=== PATIENT | male | born 1955 | race Caucasian/White ===

== ENCOUNTER → 2020-05-16 07:55 | Outpatient (BNVA) | payer OTHER, SELFPAY | PROVIDERS: Referring Provider Family Medicine; Visit Provider Internal Medicine | DX: E10.40 Type 1 diabetes mellitus with diabetic neuropathy, unspecified (principal); E10.51 Type 1 diabetes mellitus with diabetic peripheral angiopathy without gangrene; E10.649 Type 1 diabetes mellitus with hypoglycemia without coma; E10.65 Type 1 diabetes mellitus with hyperglycemia; E10.8 Type 1 diabetes mellitus with unspecified complications; E78.2 Mixed hyperlipidemia; I10 Essential (primary) hypertension | CPT/HCPCS: 99205 ==

== ENCOUNTER 2020-06-14 11:09 | Outpatient (CLI) | payer OTHER, SELFPAY ==
[2020-06-14 12:24] LABS: Estmated Average Glucose 177; Hemoglobin A1C 7.8 % (4.0-6.0)
[2020-06-15 06:37] LABS: C-Peptide <0.10 ng/mL (0.80-3.85)
== END 2020-06-14 11:10 | disposition home or self-care (01) ==
LOC: LAB 11:12
PROVIDERS: Visit Provider Internal Medicine
DX: E11.40 Type 2 diabetes mellitus with diabetic neuropathy, unspecified (principal); E11.51 Type 2 diabetes mellitus with diabetic peripheral angiopathy without gangrene; E11.649 Type 2 diabetes mellitus with hypoglycemia without coma; E78.2 Mixed hyperlipidemia; I10 Essential (primary) hypertension
CPT/HCPCS: 83036; 84681; 99215

== ENCOUNTER → 2020-09-17 09:54 | Outpatient (BNVA) | payer OTHER, SELFPAY | PROVIDERS: Visit Provider Internal Medicine | DX: E10.40 Type 1 diabetes mellitus with diabetic neuropathy, unspecified (principal); E10.51 Type 1 diabetes mellitus with diabetic peripheral angiopathy without gangrene; E10.649 Type 1 diabetes mellitus with hypoglycemia without coma; E78.2 Mixed hyperlipidemia; I10 Essential (primary) hypertension | CPT/HCPCS: 99215 ==

== ENCOUNTER → 2020-12-13 14:26 | Outpatient (BNVA) | payer OTHER, SELFPAY | PROVIDERS: Visit Provider Internal Medicine | DX: E10.40 Type 1 diabetes mellitus with diabetic neuropathy, unspecified (principal); E10.51 Type 1 diabetes mellitus with diabetic peripheral angiopathy without gangrene; E10.649 Type 1 diabetes mellitus with hypoglycemia without coma; E78.2 Mixed hyperlipidemia; I10 Essential (primary) hypertension | CPT/HCPCS: 99214 ==

== ENCOUNTER 2020-12-13 14:51 | Outpatient (CLI) | payer OTHER, SELFPAY ==
[2020-12-13 16:22] LABS: Estmated Average Glucose 163; Hemoglobin A1C 7.3 % (4.0-6.0)
== END 2020-12-13 14:52 | disposition home or self-care (01) ==
LOC: LAB 15:00
PROVIDERS: Visit Provider Internal Medicine
DX: E10.8 Type 1 diabetes mellitus with unspecified complications (principal)
CPT/HCPCS: 36415; 83036

== ENCOUNTER → 2021-01-09 10:55 | Outpatient (BNVA) | payer OTHER, SELFPAY | PROVIDERS: Visit Provider Family Medicine | DX: I10 Essential (primary) hypertension (principal); E10.8 Type 1 diabetes mellitus with unspecified complications; Z72.0 Tobacco use | CPT/HCPCS: 80053; 80061 ==

== ENCOUNTER → 2021-06-14 10:59 | Outpatient (BNVA) | payer OTHER, SELFPAY | PROVIDERS: Visit Provider Internal Medicine | DX: E10.40 Type 1 diabetes mellitus with diabetic neuropathy, unspecified (principal); E10.649 Type 1 diabetes mellitus with hypoglycemia without coma; E10.51 Type 1 diabetes mellitus with diabetic peripheral angiopathy without gangrene; E10.8 Type 1 diabetes mellitus with unspecified complications; I10 Essential (primary) hypertension; E78.2 Mixed hyperlipidemia; Z79.4 Long term (current) use of insulin | CPT/HCPCS: 99214 ==

== ENCOUNTER → 2021-08-01 10:46 | Outpatient (BNVA) | payer OTHER, SELFPAY | PROVIDERS: Visit Provider Family Medicine | DX: E10.8 Type 1 diabetes mellitus with unspecified complications (principal) | CPT/HCPCS: 80053; 83036 ==

== ENCOUNTER → 2022-03-24 13:58 | Outpatient (BNVA) | payer MEDICARE, SELFPAY | PROVIDERS: Visit Provider Internal Medicine | DX: E10.649 Type 1 diabetes mellitus with hypoglycemia without coma (principal); E10.59 Type 1 diabetes mellitus with other circulatory complications; E10.8 Type 1 diabetes mellitus with unspecified complications; E10.40 Type 1 diabetes mellitus with diabetic neuropathy, unspecified; E78.2 Mixed hyperlipidemia; E16.0 Drug-induced hypoglycemia without coma; T38.3X5A Adverse effect of insulin and oral hypoglycemic [antidiabetic] drugs, initial encounter; F17.210 Nicotine dependence, cigarettes, uncomplicated; Z79.4 Long term (current) use of insulin | CPT/HCPCS: 99214 ==

== ENCOUNTER → 2022-06-23 10:20 | Outpatient (BNVA) | payer MEDICARE, SELFPAY | PROVIDERS: PCP Family Medicine; Visit Provider Internal Medicine | DX: E10.40 Type 1 diabetes mellitus with diabetic neuropathy, unspecified (principal); E10.649 Type 1 diabetes mellitus with hypoglycemia without coma; E10.59 Type 1 diabetes mellitus with other circulatory complications; I73.9 Peripheral vascular disease, unspecified; E78.2 Mixed hyperlipidemia; E16.0 Drug-induced hypoglycemia without coma; T38.3X5A Adverse effect of insulin and oral hypoglycemic [antidiabetic] drugs, initial encounter; Z79.4 Long term (current) use of insulin; F17.210 Nicotine dependence, cigarettes, uncomplicated | CPT/HCPCS: 36415; 80053; 80061; 82044; 83036; 99214 ==

== ENCOUNTER → 2022-09-23 13:14 | Outpatient (BNVA) | payer MEDICARE, SELFPAY | PROVIDERS: PCP Family Medicine; Visit Provider Internal Medicine | DX: E10.649 Type 1 diabetes mellitus with hypoglycemia without coma (principal); E10.59 Type 1 diabetes mellitus with other circulatory complications; E10.40 Type 1 diabetes mellitus with diabetic neuropathy, unspecified; E16.0 Drug-induced hypoglycemia without coma; T38.3X5A Adverse effect of insulin and oral hypoglycemic [antidiabetic] drugs, initial encounter; E78.2 Mixed hyperlipidemia; R53.83 Other fatigue; I73.9 Peripheral vascular disease, unspecified; Z79.4 Long term (current) use of insulin | CPT/HCPCS: 99214 ==

== ENCOUNTER → 2022-12-31 11:29 | Outpatient (BNVA) | payer MEDICARE, SELFPAY | PROVIDERS: PCP Family Medicine; Visit Provider Internal Medicine | DX: E16.0 Drug-induced hypoglycemia without coma (principal); T38.3X5A Adverse effect of insulin and oral hypoglycemic [antidiabetic] drugs, initial encounter; E10.8 Type 1 diabetes mellitus with unspecified complications; E78.2 Mixed hyperlipidemia; R53.83 Other fatigue | CPT/HCPCS: 80053; 80061; 82043; 83036; 84439; 84443 ==

== ENCOUNTER → 2023-01-05 10:54 | Outpatient (BNVA) | payer MEDICARE, SELFPAY | PROVIDERS: PCP Family Medicine; Visit Provider Internal Medicine | DX: E10.649 Type 1 diabetes mellitus with hypoglycemia without coma (principal); E10.40 Type 1 diabetes mellitus with diabetic neuropathy, unspecified; E16.0 Drug-induced hypoglycemia without coma; T38.3X5A Adverse effect of insulin and oral hypoglycemic [antidiabetic] drugs, initial encounter; R53.83 Other fatigue; E78.2 Mixed hyperlipidemia; I73.9 Peripheral vascular disease, unspecified; X58.XXXA Exposure to other specified factors, initial encounter; Z79.4 Long term (current) use of insulin | CPT/HCPCS: 99214 ==

== ENCOUNTER → 2023-04-14 14:44 | Outpatient (BNVA) | payer MEDICARE, SELFPAY | PROVIDERS: PCP Family Medicine; Visit Provider Internal Medicine | DX: R53.83 Other fatigue (principal); E16.0 Drug-induced hypoglycemia without coma; T38.3X5A Adverse effect of insulin and oral hypoglycemic [antidiabetic] drugs, initial encounter; E78.2 Mixed hyperlipidemia; E10.649 Type 1 diabetes mellitus with hypoglycemia without coma; Z79.4 Long term (current) use of insulin | CPT/HCPCS: 99214 ==

== ENCOUNTER → 2023-04-27 14:39 | Outpatient (BNVA) | payer MEDICARE, SELFPAY | PROVIDERS: PCP Family Medicine; Visit Provider Family Medicine | DX: Z12.5 Encounter for screening for malignant neoplasm of prostate (principal); E10.8 Type 1 diabetes mellitus with unspecified complications; E78.5 Hyperlipidemia, unspecified; E16.0 Drug-induced hypoglycemia without coma; T38.3X5A Adverse effect of insulin and oral hypoglycemic [antidiabetic] drugs, initial encounter; R53.83 Other fatigue | CPT/HCPCS: 80053; 80061; 82043; 83036; G0103 ==

== ENCOUNTER → 2023-05-06 12:26 | Outpatient (BNVA) | payer MEDICARE, SELFPAY | PROVIDERS: PCP Family Medicine; Visit Provider Surgery | DX: Z80.0 Family history of malignant neoplasm of digestive organs (principal) | CPT/HCPCS: 99203 ==

== ENCOUNTER 2023-07-01 09:19 | Day surgery (SDC) | payer MEDICARE, SELFPAY ==
[2023-07-01] VITALS (11 sets, daily range): BP systolic 116–149; BP diastolic 64–80; PULSE 49–65; RESP 14–18; TEMP 36.1–36.6; O2SAT 95–100; BMI 26.8
[2023-07-01] MEDS: sodium chloride 0.9% 1,000 ML 30 ML IV (09:43)
[2023-07-01 09:46] LABS: Glucose Point of Care 136 mg/dL (70-110)
--- NOTE | 2023-07-01 09:47 | PM.HP ---
Providers/Chief Complaint Primary Care Provider: Shellie Betancourt MD Chief Complaint: Z80.0 History of Present Illness Neil Hurtado is a 67 year old male Review of Systems General: Reports: 10 or more systems reviewed and unremarkable except in HPI and below Medications/Allergies Home Medications Medication Instructions Recorded Confirmed Last Taken Type insulin aspart U-100 100 unit/mL See Rx Instructions SUBCUT TID #15 07/02/22 07/01/23 06/30/23 Rx (3 mL) subcutaneous pen (Novolog mL FlexPen U-100 Insulin aspart) flash glucose scanning reader #1 ea 01/05/23 06/29/23 06/29/23 Rx (FreeStyle Jeffrey 2 [place]) flash glucose sensor (FreeStyle #6 ea 01/05/23 06/29/23 06/29/23 Rx Jeffrey 2 Sensor kit) amlodipine 5 mg tablet 5 mg PO DAILY 06/29/23 07/01/23 06/29/23 History insulin glargine U-300 conc 300 65 unit SUBCUT DAILY 06/29/23 07/01/23 06/30/23 History unit/mL (3 mL) subcutaneous pen (Toujeo Max U-300 SoloStar) sildenafil (pulm.hypertension) 20 20 mg PO DAILY 06/29/23 07/01/23 06/29/23 History mg tablet atorvastatin 40 mg tablet See Rx Instructions .Route 06/30/23 07/01/23 06/29/23 Rx .COMPLEX #90 tabs losartan 100 mg tablet 100 mg PO DAILY #90 tabs 06/30/23 07/01/23 06/29/23 Rx Allergies Allergy/AdvReac Type Severity Reaction Status Date / Time Penicillins Allergy Unknown UNKNOWN Verified 07/01/23 09:27 PFSH Acute PFSH: Medical History History of myocardial infarction Surgical History H/O hand surgery H/O heart surgery Hx of colonoscopy with polypectomy last done 5 yrs ago hx of polyps Family History Other Cancer Diabetes Social History Smoking and tobacco/nicotine status: current every day tobacco/nicotine user cigarettes Packs smoked per day: 0.5 Quit status (tobacco/nicotine): considering quitting Alcohol intake: current Alcohol intake frequency: holidays/special occasions only Substance/Drug Use: never Current gender identity: Male Vitals/I&O/Wt Last Vital Signs Temp 97.8 F 07/01/23 09:30 Pulse 65 07/01/23 09:30 Resp 18 07/01/23 09:30 BP 143/79 07/01/23 09:30 Pulse Ox 96 07/01/23 09:30 O2 Del Method Room Air 07/01/23 09:30 Weight last 48 hrs Weight 198 lb Physical Exam Narrative: General : Patient is well developed , no acute distress, oriented x3 Head : Normal cephalic, a-traumatic. Ears : Pinnae and external canal are normal. Hearing is normal. Eyes : PERRLA, Sclera and injection are normal. No conjunctival discharge. Nose : Mucous membranes are without erythema. Throat : buccal mucosa is normal, gums are without significant recession or hypertrophy. Lungs : Equal chest rise bilaterally, no use of accessory muscles, trachea is midline. Cor : Rate and rhythm are normal. Abdomen : Soft, ND, NT, no g/r/m Extremities : No edema, no cyanosis or clubbing, dorsalis pedis pulses are present bilaterally, non-tender to palpation of calves. Upper extremities are normal bilaterally. Back : non-tender to palpation, no CVA tenderness. Neuro : CN II - XII intact, Upper and lower extremities have equal and full strength A&P Assessment and plan (1) Family history of colon cancer: Plan Colonoscopy Attestations Medical Necessity Statement*: Home Coding Level of Care Code Acute Code for Chg Fwd Diagnoses Family history of colon cancer Z80.0
--- NOTE | 2023-07-01 10:25 | P.ANESASSM_ITS ---
Pre-Anesthetic Assessment Height/Weight: Height 1.83 m Weight 89.811 kg Temp Pulse Resp BP Pulse Ox O2 Del Method 97.8 F 65 18 143/79 96 Room Air 07/01/23 09:30 07/01/23 09:30 07/01/23 09:30 07/01/23 09:30 07/01/23 09:30 07/01/23 09:30 Preop Diagnosis: screening Operation Date: 07/01/23 10:30 Proposed Procedures p Colonoscopy 41175,Z80.0(Not Applicable) - Vignesh Paul DO Familial anesthetic complications: None Was Beta Sam taken within 24 hours: N/A Was Clonidine taken within 24 hours: N/A Last intake: Intake Last Liquid Date 07/01/23 Last Liquid Time 22:30 Last Solid Date 06/29/23 Social Tobacco (1ppd x5 years ) and No alcohol Exam alert, oriented x 3 and regular rate & rhythm Airway Submandibular: within normal limits Mallampati: Class I Dentition: false History/ROS No significant history except as noted Pulmonary None reported CV/HEM Coronary Artery Disease, Hypertension and Peripheral Vascular Disease None reported Hepatic None reported GI None reported Metabolic Diabetes Mellitus [facility] Lower Back Pain Neuropsych None reported Anesthetic Plan ASA status: 3 Anesthesia: Anesthesia Evaluation and MAC Risk of > 500 ml blood loss (7ml/kg in children): No Medications/Allergies Home Medications Medication Instructions Recorded Confirmed Last Taken Type insulin aspart U-100 100 unit/mL See Rx Instructions SUBCUT TID #15 07/02/22 07/01/23 06/30/23 Rx (3 mL) subcutaneous pen (Novolog mL FlexPen U-100 Insulin aspart) flash glucose scanning reader #1 ea 01/05/23 06/29/23 06/29/23 Rx (FreeStyle Jeffrey 2 [place]) flash glucose sensor (FreeStyle #6 ea 01/05/23 06/29/23 06/29/23 Rx Jeffrey 2 Sensor kit) amlodipine 5 mg tablet 5 mg PO DAILY 06/29/23 07/01/23 06/29/23 History insulin glargine U-300 conc 300 65 unit SUBCUT DAILY 06/29/23 07/01/23 06/30/23 History unit/mL (3 mL) subcutaneous pen (Toujeo Max U-300 SoloStar) sildenafil (pulm.hypertension) 20 20 mg PO DAILY 06/29/23 07/01/23 06/29/23 History mg tablet atorvastatin 40 mg tablet See Rx Instructions .Route 06/30/23 07/01/23 06/29/23 Rx .COMPLEX #90 tabs losartan 100 mg tablet 100 mg PO DAILY #90 tabs 06/30/23 07/01/23 06/29/23 Rx Allergies Allergy/AdvReac Type Severity Reaction Status Date / Time Penicillins Allergy Unknown UNKNOWN Verified 07/01/23 09:27 Current Medications Generic Name Dose Route Start Last Admin Trade Name Freq PRN Reason Stop Dose Admin Sodium Chloride 1,000 mls @ 30 mls/hr 07/01/23 09:30 07/01/23 09:43 Sodium Chloride 0.9% IV 07/02/23 09:29 30 mls/hr .Q24H LEILA Administration PFSH Anesthesia Medical History History of myocardial infarction Surgical History H/O hand surgery H/O heart surgery Hx of colonoscopy with polypectomy last done 5 yrs ago hx of polyps Family History Other Cancer Diabetes Social History Smoking and tobacco/nicotine status: current every day tobacco/nicotine user cigarettes Packs smoked per day: 0.5 Quit status (tobacco/nicotine): considering quitting Alcohol intake: current Alcohol intake frequency: holidays/special occasions only Substance/Drug Use: never Current gender identity: Male Data Anesthesia Cardiac Studies: No Data to Display
[2023-07-01 11:53] LABS: Glucose Point of Care 149 mg/dL (70-110)
--- NOTE | 2023-07-01 14:02 | PC.NURSE ---
CONTINUOUS PULSE OXIMETER MONITORING FOR A TOTAL OF 2 HOURS PER ANESTHESIA INSTRUCTIONS. PT REPORTED NO SHORTNESS OF BREATH, DENIES CHEST PAIN. OXYGEN SATURATION >95% ON ROOM AIR WHILE PT IN RECOVERY. DISCHARGE INSTRUCTIONS AND MEDICATIONS REVIEWED WITH PT, VERBALIZED UNDERSTANDING. ALL QUESTIONS ANSWERED.
--- NOTE | 2023-07-02 12:29 | PM.MISC ---
Miscellaneous Note Purpose of Documentation: Patient check-up post procedure Note: Notified patient not feeling well and vomiting today after colonoscopy yesterday. Called patient. He states he's felt nauseated since last night. Vomited once this morning. Denies any shortness of breath, dyspnea, or cough. States he feels some soreness around his ribs if he coughs. He doesn't have a thermometer, but states he feels a bit febrile. Instructed patient to go to ER and inform them he is having nausea/vomiting/possible fever after colonoscopy and possible aspiration event yesterday. Patient projectile vomited during his colonoscopy and may developing aspiration pneumonia or may be experiencing complication from colonoscopy. Patient states he will proceed to ER at 2 pm when his ride arrives.
== END 2023-07-01 13:48 | disposition home or self-care (01) ==
PROVIDERS: PCP Family Medicine; Visit Provider Surgery
PROC: 0DJD8ZZ Inspection of Lower Intestinal Tract, Via Natural or Artificial Opening Endoscopic (ICD-10-PCS; CPT 45378; principal; 2023-07-01 10:30)
DX: Z86.010 Personal history of colon polyps (principal); Z80.0 Family history of malignant neoplasm of digestive organs; K64.8 Other hemorrhoids; K57.30 Diverticulosis of large intestine without perforation or abscess without bleeding; K62.1 Rectal polyp; F17.210 Nicotine dependence, cigarettes, uncomplicated; I25.10 Atherosclerotic heart disease of native coronary artery without angina pectoris; I10 Essential (primary) hypertension; E11.9 Type 2 diabetes mellitus without complications; Z79.4 Long term (current) use of insulin; I25.2 Old myocardial infarction
CPT/HCPCS: 36416; 45385; 82962; 88305; J0330; J2250; J2704; J7030

== ENCOUNTER 2023-07-02 16:38 | Emergency (ER) | payer MEDICARE, SELFPAY ==
[2023-07-02 16:44] VITALS: BP 117/69; PULSE 76; RESP 15; TEMP 37.4; O2SAT 96; BMI 26.8
--- NOTE | 2023-07-02 17:11 | ED_ITS ---
HPI - General Adult General: Chief complaint: General Medical Stated complaint: fever, fluid in lungs, had colonoscopy Time Seen by Provider: 07/02/23 17:11 History of Present Illness: 67-year-old male patient comes in today for cough after procedure. Patient had a colonoscopy yesterday and after the procedure patient had a significant amount of emesis. It was concerned that patient may have had an aspiration of emesis. Today patient did report some cough and a low-grade fever less than 100.4. Patient reports feeling well. Patient appears nontoxic. Patient reports no significant pain. Associated symptoms: Deny chest pain, nausea or vomiting Review of Systems General: Reports: 10 or more systems reviewed and unremarkable except in HPI and below Const: Reports: chills; Denies: fever(s) Card: Denies: chest pain Resp: Reports: non-productive cough GI: Denies: abdominal pain, nausea, vomiting, diarrhea or constipation : Denies: difficulty urinating Musc: Denies: neck pain or back pain PFSH ED PFSH: Medical History History of myocardial infarction Surgical History H/O hand surgery H/O heart surgery Hx of colonoscopy with polypectomy last done 5 yrs ago hx of polyps Family History Other Cancer Diabetes Social History Smoking and tobacco/nicotine status: current every day tobacco/nicotine user cigarettes Packs smoked per day: 0.5 Quit status (tobacco/nicotine): considering quitting Alcohol intake: current Alcohol intake frequency: holidays/special occasions only Substance/Drug Use: never Current gender identity: Male Physical Exam Const: COMMON NORMALS: alert HENMT: HEAD & SCALP: normal to inspection Neck/C-Spine: COMMON NORMALS: full ROM Resp: COMMON NORMALS: normal respiratory effort and clear to auscultation bilaterally AUSCULTATION: clear to auscultation bilaterally Cardio: COMMON NORMALS: regular rate and regular rhythm RATE: regular rate RHYTHM: regular rhythm GI: COMMON NORMALS: Soft to palpation and non-tender AUSCULTATION: Yes normoactive bowel sounds PALPATION: Yes Soft to palpation : COMMON NORMALS: Yes no CVA tenderness BLADDER/KIDNEY EXAM: Yes no CVA tenderness Back/Pelvis: COMMON NORMALS: no CVA tenderness Extremity: COMMON NORMALS: normal to inspection Neuro: SENSORIUM/ORIENTATION: Yes alert Skin: COMMON NORMALS: turgor normal GENERAL SKIN EXAM: turgor normal Course Vital Signs: Vital signs: Vital Signs Temperature 99.3 F 07/02/23 16:44 Pulse Rate 61 07/02/23 18:45 Respiratory Rate 18 07/02/23 18:45 Blood Pressure 113/49 07/02/23 18:45 Pulse Oximetry 95 07/02/23 18:45 Oxygen Delivery Me thod Room Air 07/02/23 16:44 MDM - General Adult Medical Decision Making Patient was referred to the ER for evaluation due to a cough and reported fever at home after procedure yesterday. Patient had talked to the nurse when she called to check on him, patient had thrown up after the procedure (colonoscopy). On exam patient appears nontoxic. Vital signs are normal. Patient appears in no pain. Abdomen was soft and nontender. Differential diagnosis includes aspiration pneumonia, postprocedure bronchitis, upper respiratory infection. CBC and CMP were unremarkable. Blood cultures were sent. Lactic was normal. Chest x-ray showed no acute abnormalities. I had Dr. Tovar, intending ph ysician, review chest x-ray with me. Recommend patient home and rest and monitor for fever. Patient was given 8 mg of dexamethasone x1 for cough and throat irritation. Patient reported understanding of care plan and need for follow-up or return to the ER. Lab Data 07/02/23 17:24 07/02/23 17:24 Laboratory Results WBC 7.68 10^3/uL (3.29-11.43) 07/02/23 17:24 RBC 4.63 10^6/uL (3.85-5.65) 07/02/23 17:24 Hgb 14.10 g/dL (11.27-16.99) 07/02/23 17:24 Hct 41.9 % (37-53) 07/02/23 17:24 MCV 90.5 fl (82-101) 07/02/23 17: MCH 30.5 pg (27-33) 07/02/23 17: MCHC 33.7 g/dL (30-55) 07/02/23 17: RDW 13.3 % (12.1-15.1) 07/02/23 17: Plt Count 143 10^3/cmm (157-399) L 07/02/23 17: MPV 9.7 fL (7.4-10.4) 07/02/23 17: Neut % (Auto) 87.2 % 07/02/23 17: Lymph % (Auto) 7.7 % 07/02/23: [place] % (Auto) 3.9 % 07/02/23 17: Eos % (Auto) 0.5 % 07/02/23 17: Baso % (Auto) 0.4 % 07/02/23: Neut # (Auto) 6.70 10^3/uL (1.8-7.7) 07/02/23: Lymph # (Auto) 0.6 10^3/uL (0.8-4.8) L 07/02/23: [place] # (Auto) 0.3 10^3/uL (0.2-0.9) 07/02/23 17: Eos # (Auto) 0.0 10^3/uL (0.0-0.8) 07/02/23: Baso # (Auto) 0.0 10^3/uL (0.0-0.1) 07/02/23 17: Nucleated RBC % (auto) 0 % 07/02/23: Nucleated RBCs # 0.0 /100WBC 07/02/23 17:24 Sodium 133 mmol/L (136-145) L 07/02/23 17:24 Potassium 4.1 mmol/L (3.5-5.1) 07/02/23 17:24 Chloride 101 mmol/L (98-107) 07/02/23 17:24 Carbon Dioxide 26 mmol/L (22-29) 07/02/23 17:24 Anion Gap 10.1 (5-19) 07/02/23 17:24 BUN 19 mg/dL (8-23) 07/02/23 17:24 Creatinine 0.9 mg/dL (0.7-1.2) 07/02/23 17:24 GFR Calculation 84.4 mL/min (90-130) L 07/02/23 17:24 Glucose 223 mg/dL (65-115) H 07/02/23 17:24 Calculated Osmolality 285 mOsm/kg (285-295) 07/02/23 17:24 Lactic Acid 0.8 mmol/L (0.5-2.2) 07/02/23 17:24 Calcium 8.1 mg/dL (8.5-10.5) L 07/02/23 17:24 Total Bilirubin 0.8 mg/dL (0.15-1.2) 07/02/23 17:24 AST 17 U/L (0-40) 07/02/23 17:24 ALT 19 U/L (0-41) 07/02/23 17:24 Alkaline Phosphatase 84 U/L (40-130) 07/02/23 17:24 Total Protein 5.8 g/dL (6.6-8.7) L 07/02/23 17:24 Albumin 3.4 g/dL (3.5-5.2) L 07/02/23 17:24 Globulin 2.4 g/dL (1.3-4.6) 07/02/23 17:24 XR interpretation done by ED provider, pending radiology final review Discharge Plan Discharge Patient Disposition: Home Clinical Impression: Bronchitis after surgery Condition: Stable Prescriptions: No Action (DME) FreeStyle Jeffrey 2 [place] Misc See Rx Instructions .Route Qty: 1 0RF Rx Instructions: As directed (DME) FreeStyle Jeffrey 2 Sensor Kit See Rx Instructions .Route Qty: 6 0RF Rx Instructions: Change every 14 days insulin aspart U-100 [Novolog FlexPen U-100 Insulin] 100 unit/mL (3 mL) insulin pen See Rx Instructions SUBCUT TID Qty: 15 3RF Rx Instructions: Inject 10 units before breakfast, 8 units before lunch and dinner, plus sliding scale. Max dose of 44 units per day. losartan 100 mg tablet 100 mg PO DAILY Qty: 90 0RF atorvastatin 40 mg tablet See Rx Instructions .ROUTE .COMPLEX Qty: 90 0RF Dose Instruction: TAKE 1 TABLET BY MOUTH DAILY Rx Instructions: TAKE 1 TABLET BY MOUTH DAILY amlodipine 5 mg tablet 5 mg PO DAILY Rx Instructions: TAKE 1 TABLET BY MOUTH DAILY sildenafil (pulm.hypertension) 20 mg tablet 20 mg PO DAILY Toujeo Max U-300 SoloStar 300 unit/mL (3 mL) insulin pen 65 unit SUBCUT DAILY Rx Instructions: INJECT 65 UNITS UNDER THE SKIN DAILY in the AM Procto-Med HC 2.5 % cream with perineal applicator 1 applic PA QID PRN (Reason: hemorrhoids) 10 Days Qty: 30 0RF Rx Instructions: May use for up to 3 weeks if no resolution after 10 days Discharge Orders: Discharge ED (Routine); Ordered 07/02/23 Ordered By: Joss Banks Referrals: Shellie Betancourt MD [Primary Care Provider] - Discharge Diet: Usual diet Discharge Activity: Increase activity as tolerated Patient Instructions: Acute Bronchitis (ED) Activity Restrictions/Additional Instructions: Home and rest. Drink plenty water and fluids. Use acetaminophen for discomfort. Follow-up with primary care as needed. Return to ED for worsening symptoms such as severe chest pain, shortness of breath, or fever greater than 100.4. Coding Level of Care Code ED Digital Marketing Coordinator for [employer]
--- NOTE | 2023-07-02 17:12 | XRR_ITS ---
PROCEDURE INFORMATION: Exam: XR Chest Exam date and time: 07/02/2023 5:14 PM Age: 67 years old Clinical indication: Device placement; Other: Post-rpocedure; Additional info: Cough, fever post procedure TECHNIQUE: Imaging protocol: Radiologic exam of the chest. Views: 1 view. COMPARISON: No relevant prior studies available. FINDINGS: Lungs: Unremarkable. No consolidation. Pleural spaces: Unremarkable. No pleural effusion. No pneumothorax. Heart/Mediastinum: Unremarkable. No cardiomegaly. Bones/joints: Unremarkable. XR/XR chest 1V portable [id number] IMPRESSION: No acute findings. Is
[2023-07-02 17:40] LABS: Basophils % 0.4 %; Eosinophils % 0.5 %; Hematocrit 41.9 % (37-53); Lymphocytes # 0.6 10^3/uL (0.8-4.8); Lymphocytes % 7.7 %; Mean Corpuscular HGB Conc 33.7 g/dL (30-55); Mean Corpuscular Hemoglobin 30.5 pg (27-33); Mean Corpuscular Volume 90.5 fl (82-101); Mean Platelet Volume 9.7 fL (7.4-10.4); Monocytes # 0.3 10^3/uL (0.2-0.9); Monocytes % 3.9 %; Neutrophils % 87.2 %; Nucleated Red Blood Cells % 0 %; Platelet Count 143 10^3/cmm (157-399); Red Blood Count 4.63 10^6/uL (3.85-5.65); Red Cell Distribution Width 13.3 % (12.1-15.1); White Blood Count 7.68 10^3/uL (3.29-11.43)
[2023-07-02 17:57] LABS: Alanine Aminotransferase 19 U/L (0-41); Albumin Level 3.4 g/dL (3.5-5.2); Alkaline Phosphatase 84 U/L (40-130); Anion Gap 10.1 (5-19); Aspartate Amino Transferase 17 U/L (0-40); Blood Urea Nitrogen 19 mg/dL (8-23); Calcium 8.1 mg/dL (8.5-10.5); Carbon Dioxide 26 mmol/L (22-29); Chloride 101 mmol/L (98-107); Globulin 2.4 g/dL (1.3-4.6); Glomerular Filtration Rate 84.4 mL/min (90-130); Glucose 223 mg/dL (65-115); Osmolality Calculated 285 mOsm/kg (285-295); Potassium 4.1 mmol/L (3.5-5.1); Sodium 133 mmol/L (136-145); Total Bilirubin 0.8 mg/dL (0.15-1.2); Total Protein 5.8 g/dL (6.6-8.7)
[2023-07-02 18:00] LABS: Lactic Sepsis W/Reflex 0.8 mmol/L (0.5-2.2)
[2023-07-02 18:45] VITALS: BP 113/49; PULSE 61; RESP 18; O2SAT 95
[2023-07-02] MEDS: dexamethasone 10 mg/mL INJ 8 MG IVP (19:30)
[2023-07-02 19:42] VITALS: BP 126/61; PULSE 60; O2SAT 98
== END 2023-07-02 19:44 | disposition home or self-care (01) ==
PROVIDERS: Emergency Provider Nurse Practitioner Family; PCP Family Medicine
DX: J40 Bronchitis, not specified as acute or chronic (principal); Z79.4 Long term (current) use of insulin; I25.2 Old myocardial infarction; F17.210 Nicotine dependence, cigarettes, uncomplicated
CPT/HCPCS: 36415; 71045; 80053; 83605; 85025; 87040; 96374; 99284; J1100

== ENCOUNTER → 2023-07-15 13:10 | Outpatient (BNVA) | payer MEDICARE, SELFPAY | PROVIDERS: PCP Family Medicine; Visit Provider Surgery | DX: Z09 Encounter for follow-up examination after completed treatment for conditions other than malignant neoplasm (principal) | CPT/HCPCS: 99213 ==

== ENCOUNTER → 2023-10-26 09:44 | Outpatient (BNVA) | payer MEDICARE, SELFPAY | PROVIDERS: PCP Family Medicine; Visit Provider Family Medicine | DX: R53.83 Other fatigue (principal); E16.0 Drug-induced hypoglycemia without coma; T38.3X5A Adverse effect of insulin and oral hypoglycemic [antidiabetic] drugs, initial encounter; E10.8 Type 1 diabetes mellitus with unspecified complications; E78.5 Hyperlipidemia, unspecified | CPT/HCPCS: 80053; 80061; 82043; 83036 ==

== ENCOUNTER → 2023-11-04 09:17 | Outpatient (BNVA) | payer MEDICARE, SELFPAY | PROVIDERS: PCP Family Medicine; Visit Provider Internal Medicine | DX: E78.2 Mixed hyperlipidemia; E16.0 Drug-induced hypoglycemia without coma; T38.3X5A Adverse effect of insulin and oral hypoglycemic [antidiabetic] drugs, initial encounter; R53.83 Other fatigue; E10.649 Type 1 diabetes mellitus with hypoglycemia without coma; X58.XXXA Exposure to other specified factors, initial encounter | CPT/HCPCS: 99214 ==

== ENCOUNTER 2024-05-05 10:18 | Outpatient (CLI) | payer MEDICARE, SELFPAY ==
[2024-05-05 10:52] LABS: Estmated Average Glucose 166; Hemoglobin A1C 7.4 % (4.0-6.0)
[2024-05-05 11:00] LABS: Alanine Aminotransferase 16 U/L (0-41); Alkaline Phosphatase 100 U/L (40-130); Anion Gap 14.7 (5-19); Aspartate Amino Transferase 12 U/L (0-40); Blood Urea Nitrogen 12 mg/dL (8-23); Calcium 8.6 mg/dL (8.5-10.5); Carbon Dioxide 25 mmol/L (22-29); Chloride 100 mmol/L (98-107); Chol HDL Ratio 2.04 mg/dL (1.0-5.00); Cholesterol 102 mg/dL (0-200); Globulin 2.6 g/dL (1.3-4.6); Glomerular Filtration Rate 96.4 mL/min (90-130); Glucose 246 mg/dL (65-115); HDL Cholesterol 50 mg/dL (60-100); LDL Cholesterol Calculated 41 mg/dL (50-129); LDL HDL Ratio 0.82 RATIO (0.00-3.22); Osmolality Calculated 288 mOsm/kg (285-295); Potassium 4.7 mmol/L (3.5-5.1); Sodium 135 mmol/L (136-145); Total Bilirubin 0.5 mg/dL (0.15-1.2); Total Protein 6.6 g/dL (6.6-8.7); Triglycerides 56 mg/dL (0-150)
[2024-05-05 11:06] LABS: Creatinine Urine, Random 129 mg/dL (39-259); Microalbum Creatinine Ratio Ur 8 mg/dL (0-20); Microalbumin Random Urine 1 ug/dL (0-20)
== END 2024-05-05 10:19 ==
LOC: LAB 10:19
PROVIDERS: PCP Family Medicine; Visit Provider Internal Medicine
DX: E78.2 Mixed hyperlipidemia; E10.649 Type 1 diabetes mellitus with hypoglycemia without coma; E16.0 Drug-induced hypoglycemia without coma; T38.3X5A Adverse effect of insulin and oral hypoglycemic [antidiabetic] drugs, initial encounter; R53.83 Other fatigue; X58.XXXA Exposure to other specified factors, initial encounter
CPT/HCPCS: 36415; 80053; 80061; 82044; 83036; 99214

== ENCOUNTER → 2024-12-05 09:57 | Outpatient (BNVA) | payer MEDICARE, SELFPAY | PROVIDERS: PCP Family Medicine; Visit Provider Family Medicine | DX: E78.2 Mixed hyperlipidemia (principal); E16.0 Drug-induced hypoglycemia without coma; T38.3X5A Adverse effect of insulin and oral hypoglycemic [antidiabetic] drugs, initial encounter; E11.649 Type 2 diabetes mellitus with hypoglycemia without coma; X58.XXXA Exposure to other specified factors, initial encounter | CPT/HCPCS: 80053; 80061; 82043; 83036 ==

== ENCOUNTER → 2024-12-27 10:14 | Outpatient (BNVA) | payer MEDICARE, SELFPAY | PROVIDERS: PCP Family Medicine; Visit Provider Internal Medicine | DX: E16.0 Drug-induced hypoglycemia without coma (principal); T38.3X5A Adverse effect of insulin and oral hypoglycemic [antidiabetic] drugs, initial encounter; R53.82 Chronic fatigue, unspecified; E10.8 Type 1 diabetes mellitus with unspecified complications; E78.2 Mixed hyperlipidemia | CPT/HCPCS: 99214 ==

== ENCOUNTER → 2025-03-15 10:19 | Outpatient (BNVA) | payer MEDICARE, SELFPAY | PROVIDERS: PCP Family Medicine; Visit Provider Internal Medicine | DX: E16.0 Drug-induced hypoglycemia without coma (principal); T38.3X5A Adverse effect of insulin and oral hypoglycemic [antidiabetic] drugs, initial encounter; R53.82 Chronic fatigue, unspecified; E78.2 Mixed hyperlipidemia; E11.649 Type 2 diabetes mellitus with hypoglycemia without coma | CPT/HCPCS: 80053; 80061; 82043; 83036 ==

== ENCOUNTER 2025-03-17 10:25 | Emergency (ER) | payer MEDICARE, SELFPAY ==
[2025-03-17 10:33] VITALS: BP 114/65; PULSE 56; RESP 17; TEMP 36.5; O2SAT 97; BMI 27.1
--- OUTSIDE RECORDS SUMMARY | 2025-03-17 10:33 | XMS_ITS | Encounter Summary ---
[facility] Organization [facility] Address [address] [place] [address] Care Team Providers Care Scientific Informatics Analyst Name Role Phone Unavailable Primary Care Provider Unavailabl e Encounter Details Date Type Department Care Team (Latest Contact Info) Description 07/21/2004 Outpatient Historical [facility] [address] 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
--- OUTSIDE RECORDS SUMMARY | 2025-03-17 10:33 | XMS_ITS | Clinical Summary ---
Author Organization [facility] Address [address] [place] [address] Care Team Providers Care Insurance Defense Attorney Name Role Phone Unavailable Primary Care Provider Unavailabl e Encounters Date Type Department Care Team Description 03/01/2025 External Device Data [facility]STRACTION Provider, Abstract 02/28/2025 External Device Data [facility] Provider, Abstract 02/28/2025 External Device Data [facility] Provider, Abstract 02/23/2025 Telephone 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
--- OUTSIDE RECORDS SUMMARY | 2025-03-17 10:33 | XMS_ITS | Clinical Summary ---
Author Organization [facility] Address [address] 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
--- OUTSIDE RECORDS SUMMARY | 2025-03-17 10:33 | XMS_ITS | Encounter Summary ---
Author Organization [facility] Address [address] 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
--- NOTE | 2025-03-17 10:40 | ED_ITS ---
HPI - Recheck/Abnormal Lab/Rx General: Chief Complaint: Recheck/Abnormal Lab/Rx Stated Complaint: dr sent immediately to ER low sodium, diabetic Related Data Previous Rx's ?Medication ?Instructions ?Recorded flash glucose scanning reader #1 ea 01/05/23 (FreeStyle [place] 2 [place]) flash glucose sensor (FreeStyle #6 ea 01/05/23 Jeffrey 2 Sensor kit) varenicline tartrate 0.5 mg (11)-1 See Rx Instructions PO PER PKG DIR 06/07/24 mg (42) tablets in a dose pack #53 ea (Chantix Starting Month Box) atorvastatin 40 mg tablet See Rx Instructions .Route 0 12/05/24 .COMPLEX #90 tabs chlorthalidone 25 mg tablet 25 mg PO QAM 90 days #90 t abs 12/05/24 losartan 100 mg tablet 100 mg PO DAILY 90 days #90 tabs 12/05/24 amlodipine 10 mg tablet 10 mg PO DAILY 90 days #90 t abs 02/27/25 fluticasone propionate 50 1 spray intranasal Q12H #15. 8 mL 02/27/25 mcg/actuation nasal spray,suspension levocetirizine 5 mg tablet (Xyzal) 5 mg PO DAILY PRN a llergy symptoms 02/27/25 #90 tabs sildenafil 25 mg tablet 25 mg PO DAILY PRN sexual ac tivity 02/27/25 #30 tabs insulin aspart U-100 100 unit/mL See Rx Instructions . Route 03/03/25 (3 mL) subcutaneous pen (Novolog .COMPLEX #45 mL FlexPen U-100 Insulin aspart) insulin glargine U-300 conc 300 See Rx Instructions .R oute 03/03/25 unit/mL (3 mL) subcutaneous pen .COMPLEX #18 mL (Toujeo Max U-300 SoloStar) Allergies Allergy/AdvReac Type Severity Reaction Status Date / Time Penicillins Allergy Unknown UNKNOWN Verified 02/27/25 09:02 PFS ED PFSH: Medical History History of myocardial infarction Surgical History Hx of colonoscopy with polypectomy last done 5 yrs ago hx of polyps H/O heart surgery H/O hand surgery Family History Other Cancer Diabetes Social History Smoking and tobacco/nicotine status: former use of tobacco/nicotine Quit status (tobacco/nicotine): considering quitting Alcohol intake: current Alcohol intake frequency: holidays/special occasions only Substance/Drug Use: never Current gender identity: Male Course Vital Signs: Vital signs: Vital Signs Temperature 97.7 F 03/17/25 10:33 Pulse Rate 56 L 03/17/25 10:33 Respiratory Rate 17 03/17/25 10:33 Blood Pressure 114/65 03/17/25 10:33 Pulse Oximetry 97 03/17/25 10:33 Oxygen Delivery Me thod Room Air 03/17/25 10:33 Discharge Plan Discharge Condition: Stable Prescriptions: No Action (DME) FreeStyle Jeffrey 2 [place] Misc See Rx Instructions .Route Qty: 1 0RF Rx Instructions: As directed (DME) FreeStyle Jeffrey 2 Sensor Kit See Rx Instructions .Route Qty: 6 0RF Rx Instructions: Change every 14 days amlodipine 10 mg tablet 10 mg PO DAILY 90 Days Qty: 90 2RF sildenafil 25 mg tablet 25 mg PO DAILY MDD 1 PRN (Reason: sexual activity) Qty: 30 5RF Rx Instructions: administer 30 minutes before activity fluticasone propionate 50 mcg/actuation spray,suspension 1 spray intranasal Q12H Qty: 15.8 5RF Rx Instructions: administer into each nostril levocetirizine [Xyzal] 5 mg tablet 5 mg PO DAILY PRN (Reason: allergy symptoms) Qty: 90 2RF varenicline tartrate [Chantix Starting Month Box] 0.5 mg (11)- 1 mg (42) tablets,dose pack See Rx Instructions PO PER PKG DIR Qty: 53 0RF Rx Instructions: PO PER PKG DIR losartan 100 mg tablet 100 mg PO DAILY 90 Days Qty: 90 2RF atorvastatin 40 mg tablet See Rx Instructions .ROUTE .COMPLEX Qty: 90 2RF Dose Instruction: TAKE 1 TABLET BY MOUTH DAILY Rx Instructions: TAKE 1 TABLET BY MOUTH DAILY chlorthalidone 25 mg tablet 25 mg PO QAM 90 Days Qty: 90 2RF Toujeo Max U-300 SoloStar 300 unit/mL (3 mL) insulin pen See Rx Instructions .ROUTE .COMPLEX Qty: 18 0RF Dose Instruction: INJECT 65 UNITS UNDER THE SKIN DAILY FOR 21 DAYS Rx Instructions: INJECT 65 UNITS UNDER THE SKIN DAILY insulin aspart U-100 [Novolog FlexPen U-100 Insulin] 100 unit/mL (3 mL) insulin pen See Rx Instructions .ROUTE .COMPLEX Qty: 45 0RF Dose Instruction: INJECT 10 UNITS BEFORE MEALS THREE TIMES DAILY PLUS SLIDING SCALE MAX DOSE OF 44 UNITS PER DAY Rx Instructions: INJECT 10 UNITS BEFORE MEALS THREE TIMES DAILY PLUS SLIDING SCALE MAX DOSE OF 44 UNITS PER DAY Referrals: Shellie Betancourt MD [Primary Care Provider, Family Practice] Print Language: Thai Coding Level of Care Code ED Production Control Coordinator for [facility] Stevenson
--- NOTE | 2025-03-17 11:09 | W.ED.RECABL ---
HPI - Recheck/Abnormal Lab/Rx General: Chief Complaint: Recheck/Abnormal Lab/Rx Stated Complaint: dr sent immediately to ER low sodium, diabetic Time Seen by Provider: 03/17/25 11:04 History of Present Illness: 61-year-old male with a history of hypertension he recently had blood pressure medicine change is not sure of the name of what he was started on. 2 days ago he had blood work done he was called yesterday advised to come to the emergency room for low sodium he came in this morning. He has been a little dizzy had 1 episode of vomiting he has not had any difficulty with gait or balance. He just generally does not feel well now. He denies any recent diarrhea. Related Data Previous Rx's ?Medication ?Instructions ?Recorded flash glucose scanning reader #1 ea 01/05/23 (FreeStyle Jeffrey 2 [place]) flash glucose sensor (FreeStyle #6 ea 01/05/23 Jeffrey 2 Sensor kit) atorvastatin 40 mg tablet See Rx Instructions .Route 12/05/24 .COMPLEX #90 tabs losartan 100 mg tablet 100 mg PO DAILY 90 days #90 tabs 12/05/24 amlodipine 10 mg tablet 10 mg PO DAILY 90 days #90 tabs 02/27/25 fluticasone propionate 50 1 spray intranasal Q12H #15.8 mL 02/27/25 mcg/actuation nasal spray,suspension levocetirizine 5 mg tablet (Xyzal) 5 mg PO DAILY PRN allergy symptoms 02/27/25 #90 tabs sildenafil 25 mg tablet 25 mg PO DAILY PRN sexual activity 02/27/25 #30 tabs insulin aspart U-100 100 unit/mL See Rx Instructions .Route 03/03/25 (3 mL) subcutaneous pen (Novolog .COMPLEX #45 mL FlexPen U-100 Insulin aspart) insulin glargine U-300 conc 300 See Rx Instructions .Route 03/03/25 unit/mL (3 mL) subcutaneous pen .COMPLEX #18 mL (Toujeo Max U-300 SoloStar) sodium chloride 1,000 mg soluble 1,000 mg PO BID 30 days #60 tabs 03/21/25 tablet Allergies Allergy/AdvReac Type Severity Reaction Status Date / Time Penicillins Allergy Unknown UNKNOWN Verified 03/21/25 06:47 Review of Systems Const: Denies: fever(s) or chills Card: Denies: chest pain Resp: Denies: dyspnea GI: Denies: abdominal pain : Denies: dysuria, urinary frequency or urinary urgency Musc: Denies: neck pain or back pain Skin/Breast: Denies: rash PFSH ED PFSH: Medical History History of myocardial infarction Surgical History Hx of colonoscopy with polypectomy last done 5 yrs ago hx of polyps H/O heart surgery H/O hand surgery Family History Other Cancer Diabetes Social History Smoking and tobacco/nicotine status: former use of tobacco/nicotine Quit status (tobacco/nicotine): considering quitting Alcohol intake: current Alcohol intake frequency: holidays/special occasions only Substance/Drug Use: never Current gender identity: Male Physical Exam Const: COMMON NORMALS: no acute distress GENERAL APPEARANCE: cooperative and comfortable ORIENTATION/CONSCIOUSNESS: Yes awake, Yes oriented to person, Yes oriented to place and Yes oriented to time HENMT: COMMON NORMALS: normocephalic, atraumatic and hearing grossly normal bilaterally HEAD & SCALP: normocephalic and atraumatic Resp: COMMON NORMALS: normal respiratory effort, No retractions, No use of accessory muscles and clear to auscultation bilaterally AUSCULTATION: clear to auscultation bilaterally Cardio: COMMON NORMALS: regular rate, regular rhythm and No murmurs present (Cardio) RATE: regular rate RHYTHM: regular rhythm GI: COMMON NORMALS: Soft to palpation and No hepatosplenomegaly present AUSCULTATION: Yes normoactive bowel sounds PALPATION: Yes Soft to palpation, No Tenderness to palpation present (GI), No Guarding due to palpation present (GI) and Yes No hepatosplenomegaly present Extremity: COMMON NORMALS: normal to inspection, capillary refill normal, no clubbing, cyanosis or edema, no calf tenderness and no pedal edema Neuro: SENSORIUM/ORIENTATION: Yes oriented to person, Yes oriented to place and Yes oriented to time Skin: COMMON NORMALS: no rashes or lesions noted GENERAL SKIN EXAM: no rashes or lesions noted Course Vital Signs: Vital signs: Vital Signs Temperature 97.7 F 03/17/25 10:33 Pulse Rate 58 L 03/17/25 13:53 Respiratory Rate 17 03/17/25 10:33 Blood Pressure 127/71 03/17/25 13:53 Pulse Oximetry 98 03/17/25 13:53 Oxygen Delivery Me thod Room Air 03/17/25 13:00 MDM - Recheck/Abnormal Lab/Rx Medical Decision Making Patient is relatively asymptomatic at this time feels somewhat weak slight upset stomach no gait disturbance no encephalopathy. Will have him stop the chlorthalidone. Patient given IV fluids here will discharge home have him follow-up in with his primary care doctor within the next 3 to 4 days to recheck sodium. Return if has worsening symptoms Medical Records I reviewed the patient's medical records. Lab Data I reviewed the patient's lab results. 03/17/25 11:06 03/17/25 11:06 Laboratory Results WBC 6.37 10^3/uL (3.29-11.43) 03/17/25 11:06 RBC 4.67 10^6/uL (3.85-5.65) 03/17/25 11:06 Hgb 13.90 g/dL (11.27-16.99) 03/17/25 11:06 Hct 40.5 % (37-53) 03/17/25 11:06 MCV 86.7 fl (82-101) 03/17/25 11:06 MCH 29.8 pg (27-33) 03/17/25 11:06 MCHC 34.3 g/dL (30-55) 03/17/25 11:06 RDW 12.9 % (12.1-15.1) 03/17/25 11:06 Plt Count 146 10^3/cmm (157-399) L 03/17/25 11:06 MPV 9.3 fL (7.4-10.4) 03/17/25 11:06 Neut % (Auto) 63.7 % 03/17/25 11:06 Lymph % (Auto) 22.8 % 03/17/25 11:06 [place] % (Auto) 10.2 % 03/17/25 11:06 Eos % (Auto) 1.7 % 03/17/25 11:06 Baso % (Auto) 1.3 % 03/17/25 11:06 Neut # (Auto) 4.06 10^3/uL (1.8-7.7) 03/17/25 11:06 Lymph # (Auto) 1.5 10^3/uL (0.8-4.8) 03/17/25 11:06 [place] # (Auto) 0.7 10^3/uL (0.2-0.9) 03/17/25 11:06 Eos # (Auto) 0.1 10^3/uL (0.0-0.8) 03/17/25 11:06 Baso # (Auto) 0.1 10^3/uL (0.0-0.1) 03/17/25 11:06 Nucleated RBC % (auto) 0 % 03/17/25 11:06 Nucleated RBCs # 0.0 /100WBC 03/17/25 11:06 Sodium 123 mmol/L (136-145) L 03/17/25 11:06 Potassium 4.0 mmol/L (3.5-5.1) 03/17/25 11:06 Chloride 87 mmol/L (98-107) L 03/17/25 11:06 Carbon Dioxide 27 mmol/L (22-29) 03/17/25 11:06 Anion Gap 13.0 (5-19) 03/17/25 11:06 BUN 15 mg/dL (8-23) 03/17/25 11:06 Creatinine 0.9 mg/dL (0.7-1.2) 03/17/25 11:06 GFR Calculation 83.9 mL/min (90-130) L 03/17/25 11:06 Glucose 206 mg/dL (65-115) H 03/17/25 11:06 Calculated Osmolality 263 mOsm/kg (285-295) L 03/17/25 11:06 Calcium 8.7 mg/dL (8.5-10.5) 03/17/25 11:06 Magnesium 2.1 mg/dL (1.7-2.3) 03/17/25 11:06 Total Bilirubin 0.5 mg/dL (0.15-1.2) 03/17/25 11:06 AST 16 U/L (0-40) 03/17/25 11:06 ALT 22 U/L (0-41) 03/17/25 11:06 Alkaline Phosphatase 106 U/L (40-130) 03/17/25 11:06 Total Protein 6.5 g/dL (6.6-8.7) L 03/17/25 11:06 Albumin 3.9 g/dL (3.5-5.2) 03/17/25 11:06 Globulin 2.6 g/dL (1.3-4.6) 03/17/25 11:06 No radiology studies performed this visit Discharge Plan Discharge Patient Disposition: Home Clinical Impression: Hyponatremia, Diabetes mellitus with neuropathy, Hypertension Condition: Stable Prescriptions: Discontinued chlorthalidone 25 mg tablet 25 mg PO QAM 90 Days Qty: 90 2RF No Action (DME) FreeStyle Jeffrey 2 [place] Misc See Rx Instructions .Route Qty: 1 0RF Rx Instructions: As directed (DME) FreeStyle Jeffrey 2 Sensor Kit See Rx Instructions .Route Qty: 6 0RF Rx Instructions: Change every 14 days amlodipine 10 mg tablet 10 mg PO DAILY 90 Days Qty: 90 2RF sildenafil 25 mg tablet 25 mg PO DAILY MDD 1 PRN (Reason: sexual activity) Qty: 30 5RF Rx Instructions: administer 30 minutes before activity fluticasone propionate 50 mcg/actuation spray,suspension 1 spray intranasal Q12H Qty: 15.8 5RF Rx Instructions: administer into each nostril levocetirizine [Xyzal] 5 mg tablet 5 mg PO DAILY PRN (Reason: allergy symptoms) Qty: 90 2RF losartan 100 mg tablet 100 mg PO DAILY 90 Days Qty: 90 2RF atorvastatin 40 mg tablet See Rx Instructions .ROUTE .COMPLEX Qty: 90 2RF Dose Instruction: TAKE 1 TABLET BY MOUTH DAILY Rx Instructions: TAKE 1 TABLET BY MOUTH DAILY Toujeo Max U-300 SoloStar 300 unit/mL (3 mL) insulin pen See Rx Instructions .ROUTE .COMPLEX Qty: 18 0RF Dose Instruction: INJECT 65 UNITS UNDER THE SKIN DAILY FOR 21 DAYS Rx Instructions: INJECT 65 UNITS UNDER THE SKIN DAILY insulin aspart U-100 [Novolog FlexPen U-100 Insulin] 100 unit/mL (3 mL) insulin pen See Rx Instructions .ROUTE .COMPLEX Qty: 45 0RF Dose Instruction: INJECT 10 UNITS BEFORE MEALS THREE TIMES DAILY PLUS SLIDING SCALE MAX DOSE OF 44 UNITS PER DAY Rx Instructions: INJECT 10 UNITS BEFORE MEALS THREE TIMES DAILY PLUS SLIDING SCALE MAX DOSE OF 44 UNITS PER DAY sodium chloride 1,000 mg tablet,soluble 1,000 mg PO BID 30 Days Qty: 60 0RF Discharge Orders: Discharge ED (Routine); Ordered 03/17/25 Ordered By: Guicho Ybarra Referrals: Shellie Betancourt MD [Primary Care Provider, Family Practice] Discharge Diet: Usual diet Discharge Activity: Increase activity as tolerated Patient Instructions: Opioid Safety, Pain Management, Patient Portal & [place] Instructions Activity Restrictions/Additional Instructions: [email or web address]. It is very important that you follow up as instructed or that you return to the Emergency Department should you have concerns or if your condition changes or worsens in any way. You were seen in the emergency room with low sodium. You are given IV normal saline your symptoms are relatively mild is felt he can be safely discharged home however you should stop your chlorthalidone. You should follow-up with your doctor within the next week to recheck your sodium. If your sodium remains low after stopping chlorthalidone you may need to change from the losartan to a different blood pressure medicine Print Language: Armenian Coding Level of Care Code ED Advertisement Compositor for [facility] Stevenson
[2025-03-17 11:23] LABS: Hematocrit 40.5 % (37-53); Hemoglobin 13.90 g/dL (11.27-16.99); Mean Corpuscular HGB Conc 34.3 g/dL (30-55); Mean Corpuscular Hemoglobin 29.8 pg (27-33); Mean Corpuscular Volume 86.7 fl (82-101); Nucleated Red Blood Cells % 0 %; Platelet Count 146 10^3/cmm (157-399); Red Blood Count 4.67 10^6/uL (3.85-5.65); White Blood Count 6.37 10^3/uL (3.29-11.43)
[2025-03-17 11:47] LABS: Alanine Aminotransferase 22 U/L (0-41); Albumin Level 3.9 g/dL (3.5-5.2); Alkaline Phosphatase 106 U/L (40-130); Anion Gap 13.0 (5-19); Aspartate Amino Transferase 16 U/L (0-40); Blood Urea Nitrogen 15 mg/dL (8-23); Calcium 8.7 mg/dL (8.5-10.5); Carbon Dioxide 27 mmol/L (22-29); Chloride 87 mmol/L (98-107); Creatinine Clr Calc Pharmacy 92.0524; Globulin 2.6 g/dL (1.3-4.6); Glucose 206 mg/dL (65-115); Magnesium 2.1 mg/dL (1.7-2.3); Osmolality Calculated 263 mOsm/kg (285-295); Potassium 4.0 mmol/L (3.5-5.1); Sodium 123 mmol/L (136-145); Total Protein 6.5 g/dL (6.6-8.7)
[2025-03-17 12:00] VITALS: BP 132/68; PULSE 53; O2SAT 97
[2025-03-17 13:00] VITALS: BP 120/71; PULSE 67; O2SAT 100
[2025-03-17 13:53] VITALS: BP 127/71; PULSE 58; O2SAT 98
== END 2025-03-17 13:54 | disposition home or self-care (01) ==
PROVIDERS: Emergency Provider Family Medicine; PCP Family Medicine
DX: E87.1 Hypo-osmolality and hyponatremia (principal); I10 Essential (primary) hypertension; E11.40 Type 2 diabetes mellitus with diabetic neuropathy, unspecified; Z87.891 Personal history of nicotine dependence; Z79.4 Long term (current) use of insulin
CPT/HCPCS: 36415; 80053; 83735; 85025; 99283

== ENCOUNTER → 2025-03-21 11:08 | Outpatient (BNVA) | payer MEDICARE, SELFPAY | PROVIDERS: PCP Family Medicine; Visit Provider Family Medicine | DX: E87.1 Hypo-osmolality and hyponatremia (principal) | CPT/HCPCS: 80048 ==

== ENCOUNTER 2025-03-28 12:56 | Outpatient (CLI) | payer MEDICARE, SELFPAY ==
[2025-03-30 17:00] LABS: Anion Gap 17.8 (5-19); Blood Urea Nitrogen 15 mg/dL (8-23); Calcium 8.7 mg/dL (8.5-10.5); Carbon Dioxide 27 mmol/L (22-29); Chloride 97 mmol/L (98-107); Glucose 207 mg/dL (65-115); Osmolality Calculated 289 mOsm/kg (285-295); Potassium 5.8 mmol/L (3.5-5.1); Sodium 136 mmol/L (136-145)
== END 2025-03-28 12:57 | disposition home or self-care (01) ==
PROVIDERS: PCP Family Medicine; Visit Provider Family Medicine
DX: E87.1 Hypo-osmolality and hyponatremia (principal)
CPT/HCPCS: 36415; 80048; 84443

== ENCOUNTER → 2025-04-06 13:22 | Outpatient (BNVA) | payer MEDICARE, SELFPAY | PROVIDERS: PCP Family Medicine; Referring Provider Family Medicine; Visit Provider Family Medicine | DX: E87.5 Hyperkalemia (principal) | CPT/HCPCS: 80048 ==

== ENCOUNTER → 2025-06-26 09:17 | Outpatient (BNVA) | payer MEDICARE, SELFPAY | PROVIDERS: PCP Family Medicine; Referring Provider Internal Medicine; Visit Provider Internal Medicine | DX: E10.8 Type 1 diabetes mellitus with unspecified complications (principal) | CPT/HCPCS: 80053; 80061; 82043; 82951; 83036; 84681; 86337; 86341 ==

== ENCOUNTER → 2025-06-27 10:36 | Outpatient (BNVA) | payer MEDICARE, SELFPAY | PROVIDERS: PCP Family Medicine; Visit Provider Internal Medicine | DX: E10.649 Type 1 diabetes mellitus with hypoglycemia without coma (principal); E78.2 Mixed hyperlipidemia; E16.0 Drug-induced hypoglycemia without coma; T38.3X5A Adverse effect of insulin and oral hypoglycemic [antidiabetic] drugs, initial encounter; R53.83 Other fatigue; X58.XXXA Exposure to other specified factors, initial encounter | CPT/HCPCS: 99214 ==

== ENCOUNTER → 2025-07-04 10:25 | Outpatient (BNVA) | payer MEDICARE, SELFPAY | PROVIDERS: PCP Family Medicine; Visit Provider Nurse Practitioner | DX: E87.1 Hypo-osmolality and hyponatremia (principal) | CPT/HCPCS: 80048 ==

== ENCOUNTER → 2025-07-11 10:07 | Outpatient (BNVA) | payer MEDICARE, SELFPAY | PROVIDERS: PCP Family Medicine; Visit Provider Nurse Practitioner | DX: E87.1 Hypo-osmolality and hyponatremia (principal) | CPT/HCPCS: 80048 ==

== ENCOUNTER → 2025-07-25 11:17 | Outpatient (BNVA) | payer MEDICARE, SELFPAY | PROVIDERS: PCP Family Medicine; Visit Provider Family Medicine | DX: E11.9 Type 2 diabetes mellitus without complications (principal) | CPT/HCPCS: 80048; 83036 ==

== ENCOUNTER → 2025-08-31 09:18 | Outpatient (BNVA) | payer MEDICARE, SELFPAY | PROVIDERS: PCP Family Medicine; Visit Provider Family Medicine | DX: I10 Essential (primary) hypertension (principal); E10.8 Type 1 diabetes mellitus with unspecified complications; E78.2 Mixed hyperlipidemia | CPT/HCPCS: 80048; 80061; 82043 ==